=== PATIENT | male | born 1945 | race Caucasian/White ===

== ENCOUNTER → 2017-06-19 | Outpatient (CLI) | payer MEDICARE ==
[~2017-06-19] MED LIST: ALPR.5; FLUO20; LANS30EC; MINO100; OXYACE5T PO
[2017-06-19 16:59] LABS: BASOPHILS ABSOLUTE AUTO 0.04 K/mm3 (0.00-0.23); BASOPHILS PERCENT AUTO 1 % (0-2); EOSINOPHILS PERCENT AUTO 2 % (0-6); Hematocrit 45.9 % (37.0-53.0); Hemoglobin 15.1 g/dL (13.5-17.5); IMMATURE GRAN ABSOLUTE AUTO 0.01 K/mm3 (0.00-0.10); IMMATURE GRAN PERCENT AUTO 0 % (0-1); LYMPHOCYTES PERCENT AUTO 22 % (21-46); MONOCYTES ABSOLUTE AUTO 0.48 K/mm3 (0.16-1.47); MONOCYTES PERCENT AUTO 8 % (4-13); Mean Corpuscular HGB Conc 32.9 g/dL (31.5-36.5); Mean Corpuscular Volume 85 fL (80-100); Mean Platelet Volume 9.6 fL (9.1-12.4); NEUTROPHILS ABSOLUTE AUTO 4.39 K/mm3 (1.96-9.15); NEUTROPHILS PERCENT AUTO 68 % (41-73); Platelet Count 230 K/mm3 (150-400); RDW Standard Deviation 39.8 fL (35.1-46.3); Red Blood Cell Count 5.39 M/mm3 (4.30-5.90); White Blood Cell Count 6.42 K/mm3 (4.00-11.30)
[2017-06-19 17:12] LABS: Albumin, Blood 3.9 g/dL (3.4-5.0); Bilirubin, Total 0.7 mg/dL (0.1-1.0); Bun/Creatinine Ratio 11.4 (12.0-20.0); Calcium, Blood 9.9 mg/dL (8.5-10.1); Creatinine, Blood 1.4 mg/dL (0.60-1.20); Globulin, Blood 3.8 g/dL (2.2-4.0); Potassium, Blood 4.3 mmol/L (3.5-5.5); Total Protein, Blood 7.7 g/dL (6.4-8.2)
== END ==
LOC: LAB EV 16:56
PROVIDERS: Physician Assistant
DX: F10.10 Alcohol abuse, uncomplicated (principal)
CPT/HCPCS: 80053; 83690; 85025

== ENCOUNTER → 2019-10-08 | Outpatient (CLI) | payer MEDICARE | END | disposition home or self-care (01) | LOC: PLD 12:06 → LAB SHORT 12:06 | DX: C44.319 Basal cell carcinoma of skin of other parts of face (principal) | CPT/HCPCS: 88305 ==

== ENCOUNTER 2021-02-01 20:42 | Emergency (ER) | payer MEDICARE ==
[~2021-02-01] VITALS: Ht 185.4 cm; Wt 86.2 kg
[2021-02-01] MEDS ORDERED: PANT40 PO (20:54)
[2021-02-01] MEDS ORDERED: ALFUZOSIN HCL10 MG PO (20:54)
== END 2021-02-01 22:05 | disposition home or self-care (01) ==
LOC: ER 20:42
DX: I95.1 Orthostatic hypotension (principal); E78.5 Hyperlipidemia, unspecified; K21.9 Gastro-esophageal reflux disease without esophagitis; Z79.899 Other long term (current) drug therapy
CPT/HCPCS: 93005; 93010; 99284-25

== ENCOUNTER → 2022-12-19 | Outpatient (CLI) | payer MEDICARE ==
[~2022-12-19] MED LIST changes: +ALFUZOSIN HCL10 MG PO; +AMLO10 PO; +AMOCLA875 PO; +AZIT250 PO; +Acetaminophen325 M1 PO; +B-1100 M1 PO; +CYCL10 PO; +DOCU100 PO; +FOLI1 PO; +LIDO700A20 TOP; +ONDA4 PO; +PANT40 PO
[2022-12-19 10:39] LABS: Source, Urine Voided
[2022-12-19 10:53] LABS: Ketones, Urine Neg (Neg); Leukocyte Esterase, Urine Neg (Neg); Nitrite, Urine Neg (Neg); Protein, Urine Neg (Neg)
[2022-12-19 10:54] LABS: Bilirubin, Urine 1+ (Neg); Blood, Urine Neg (Neg); Glucose Qualitative, Urine NORM (Normal); Urobilinogen, Urine NORM (Normal)
[2022-12-19 10:55] LABS: Appearance, Urine Clear (Clear); Color, Urine Yellow (P-Yellow)
== END | disposition home or self-care (01) ==
LOC: LAB SHORT 09:20 → LAB 09:20
PROVIDERS: Physician Assistant
DX: N39.0 Urinary tract infection, site not specified (principal)
CPT/HCPCS: 81003

== ENCOUNTER → 2023-05-02 | Outpatient (CLI) | payer MEDICARE ==
[2023-05-03 10:55] LABS: Source, Urine Voided
[2023-05-03 10:56] LABS: Appearance, Urine Clear (Clear); Bilirubin, Urine Neg (Neg); Color, Urine Yellow (P-Yellow); Glucose Qualitative, Urine Neg (Normal); Ketones, Urine Neg (Neg); Leukocyte Esterase, Urine Neg (Neg); Nitrite, Urine Neg (Neg); Protein, Urine Neg (Neg); Specific Gravity, Urine 1.005 (1.003-1.022); Urobilinogen, Urine NORM (Normal)
[2023-05-03 10:57] LABS: Blood, Urine Neg (Neg)
== END ==
LOC: LAB 20:17 → LAB SHORT 20:17
PROVIDERS: Physician Assistant
DX: R17 Unspecified jaundice (principal)
CPT/HCPCS: 81003

== ENCOUNTER 2023-09-20 01:51 | Emergency (ER) | payer MEDICARE ==
[~2023-09-20] VITALS: Ht 182.9 cm; Wt 83.9 kg
[2023-09-20] MEDS ORDERED: Diphth,Pertuss(Acell),Tet Vac 0.5 ML VIAL IM ONE (02:45)
[2023-09-20] MEDS ORDERED: Bacitracin Zinc Oint 1GRAM UD Packet TOP ONE (02:45)
[2023-09-20] MEDS ORDERED: Ibuprofen 600 MG Tab PO ONE (02:45)
[2023-09-20 02:46] VITALS: BP 102/76
[2023-09-20] MEDS ORDERED: Ibuprofen600 MG PO (04:51)
== END 2023-09-20 05:22 | disposition home or self-care (01) ==
LOC: ER 01:51
DX: S42.201A Unspecified fracture of upper end of right humerus, initial encounter for closed fracture (principal); S00.81XA Abrasion of other part of head, initial encounter; Z23 Encounter for immunization; K21.9 Gastro-esophageal reflux disease without esophagitis; E78.5 Hyperlipidemia, unspecified; W18.30XA Fall on same level, unspecified, initial encounter; Z87.891 Personal history of nicotine dependence; Z79.899 Other long term (current) drug therapy; Z88.5 Allergy status to narcotic agent
CPT/HCPCS: 70450; 72125; 73060; 90471; 90715; 99284-25; A9270

== ENCOUNTER 2023-09-25 05:29 | Emergency (ER) | payer MEDICARE ==
[~2023-09-25] VITALS: Ht 182.9 cm; Wt 83.9 kg
[~2023-09-25 05:29] MED LIST changes: +Ibuprofen600 MG PO
[2023-09-25 06:48] VITALS: BP 125/85
== END 2023-09-25 06:43 | disposition home or self-care (01) ==
LOC: ER 05:29
DX: S42.211D Unspecified displaced fracture of surgical neck of right humerus, subsequent encounter for fracture with routine healing (principal); Z46.89 Encounter for fitting and adjustment of other specified devices; Z87.891 Personal history of nicotine dependence; K21.9 Gastro-esophageal reflux disease without esophagitis; E78.5 Hyperlipidemia, unspecified; Z79.899 Other long term (current) drug therapy; Z88.5 Allergy status to narcotic agent
CPT/HCPCS: 29105; 73030; 99283-25

== ENCOUNTER 2024-07-24 11:44 | Emergency (ER) | payer OTHER, MEDICARE ==
[~2024-07-24] VITALS: Ht 182.9 cm; Wt 83.9 kg
[2024-07-24 11:46] VITALS: BP 173/91
[2024-07-24] MEDS ORDERED: Lidocaine/Tetracaine/Epinephr 3 ML GEL SYRINGE TOP ONE (13:00)
[2024-07-24] MEDS ORDERED: Diphth,Pertuss(Acell),Tet Vac 0.5 ML VIAL IM ONE (13:05)
== END 2024-07-24 13:34 | disposition home or self-care (01) ==
LOC: ER 11:44
DX: S00.81XA Abrasion of other part of head, initial encounter (principal); E78.5 Hyperlipidemia, unspecified; K21.9 Gastro-esophageal reflux disease without esophagitis; Z87.891 Personal history of nicotine dependence; Z88.6 Allergy status to analgesic agent; Z88.5 Allergy status to narcotic agent; Z59.89 Other problems related to housing and economic circumstances; W01.0XXA Fall on same level from slipping, tripping and stumbling without subsequent striking against object, initial encounter
CPT/HCPCS: 70450; 72125; 90471; 90715; 99284-25

== ENCOUNTER 2024-10-25 08:15 | Emergency (ER) | payer MEDICARE ==
[~2024-10-25] VITALS: Ht 182.9 cm; Wt 83.5 kg
[2024-10-25 11:25] VITALS: BP 147/89
== END 2024-10-25 11:27 | disposition home or self-care (01) ==
LOC: ER 08:15
DX: S20.211A Contusion of right front wall of thorax, initial encounter (principal); S09.90XA Unspecified injury of head, initial encounter; E78.5 Hyperlipidemia, unspecified; K21.9 Gastro-esophageal reflux disease without esophagitis; Z87.891 Personal history of nicotine dependence; W18.30XA Fall on same level, unspecified, initial encounter
CPT/HCPCS: 70450; 71046; 99284-25

== ENCOUNTER 2025-03-13 08:18 | Emergency (ER) | payer MEDICARE ==
[~2025-03-13] VITALS: Ht 182.9 cm; Wt 81.7 kg
[2025-03-13 10:10] LABS: BASOPHILS ABSOLUTE AUTO 0.02 K/mm3 (0.00-0.23); BASOPHILS PERCENT AUTO 0 % (0-2); EOSINOPHILS ABSOLUTE AUTO 0.08 K/mm3 (0.00-0.68); EOSINOPHILS PERCENT AUTO 1 % (0-6); Hematocrit 40.3 % (37.0-53.0); Hemoglobin 13.3 g/dL (13.5-17.5); IMMATURE GRAN ABSOLUTE AUTO 0.02 K/mm3 (0.00-0.10); IMMATURE GRAN PERCENT AUTO 0 % (0-1); LYMPHOCYTES ABSOLUTE AUTO 1.43 K/mm3 (0.84-5.20); LYMPHOCYTES PERCENT AUTO 18 % (21-46); MONOCYTES ABSOLUTE AUTO 0.49 K/mm3 (0.16-1.47); MONOCYTES PERCENT AUTO 6 % (4-13); Mean Corpuscular HGB Conc 33.0 g/dL (31.5-36.5); Mean Corpuscular Volume 87 fL (80-100); NEUTROPHILS ABSOLUTE AUTO 5.84 K/mm3 (1.96-9.15); NEUTROPHILS PERCENT AUTO 74 % (41-73); NRBC ABSOLUTE 0.00 K/mm3 (0.00-0.02); NRBC Auto 0.0 /100 WBC (0.0-0.2); Platelet Count 173 K/mm3 (150-400); RDW Coefficient Variation 12.9 % (11.7-14.2); RDW Standard Deviation 40.5 fL (35.1-46.3)
[2025-03-13] MEDS ORDERED: NS 1,000 ML IV SCH (10:30)
[2025-03-13 10:40] LABS: Alanine Aminotransfer (ALT/SGP 27.0 U/L (12-78); Albumin, Blood 3.3 g/dL (3.4-5.0); Albumin/Globulin Ratio 1.0 (0.8-1.8); Anion Gap 9.0 mmol/L (3-11); Aspartate Aminotrans (AST/SGOT 30.0 U/L (12-37); Bilirubin, Total 0.6 mg/dL (0.1-1.0); Blood Urea Nitrogen 21.0 mg/dL (8-24); CO2, Blood 23.0 mmol/L (21-32); Calcium, Blood 9.2 mg/dL (8.5-10.1); Chloride, Blood 109.0 mmol/L (98-108); Creatinine, Blood 1.45 mg/dL (0.60-1.20); Globulin, Blood 3.2 g/dL (2.2-4.0); Glucose, Blood 115.0 mg/dL (70-99); Potassium, Blood 3.9 mmol/L (3.5-5.5); Sodium, Blood 137.0 mmol/L (136-145); Total Protein, Blood 6.5 g/dL (6.4-8.2)
[2025-03-13 11:28] VITALS: BP 164/85
== END 2025-03-13 13:22 | disposition left against medical advice (07) ==
LOC: ER 08:18
PROVIDERS: Family Medicine
DX: M25.552 Pain in left hip (principal); W18.30XA Fall on same level, unspecified, initial encounter; Z87.891 Personal history of nicotine dependence
CPT/HCPCS: 70450; 73502; 80053; 85025; 93005; 93010; 99284-25; A9270; J7030

== ENCOUNTER 2025-03-30 11:10 | Inpatient (IN) | payer MEDICARE ==
[~2025-03-30] VITALS: Ht 182.9 cm; Wt 80.4 kg
[2025-03-30] MEDS ORDERED: Dexamethasone Sod Phos 10 MG/ML 1ML VIAL IV ONE (11:25)
[2025-03-30] MEDS ORDERED: Ketamine HCL 10 MG in NS 100 ML IV ONE (11:25)
[2025-03-30] MEDS ORDERED: Ondansetron 4 MG SoluTab MM ONE (13:40)
[2025-03-30] MEDS ORDERED: Ondansetron HCl 2 MG / ML 2ML Vial IV ONE (15:15)
[2025-03-30] MEDS ORDERED: HYDROmorphone HCl/Pf 1MG SYR IV ONE ×2 (15:15→16:10)
[2025-03-30 16:16] LABS: BASOPHILS ABSOLUTE AUTO 0.01 K/mm3 (0.00-0.23); BASOPHILS PERCENT AUTO 0 % (0-2); EOSINOPHILS ABSOLUTE AUTO 0.00 K/mm3 (0.00-0.68); EOSINOPHILS PERCENT AUTO 0 % (0-6); Hematocrit 40.9 % (37.0-53.0); Hemoglobin 13.5 g/dL (13.5-17.5); IMMATURE GRAN ABSOLUTE AUTO 0.03 K/mm3 (0.00-0.10); IMMATURE GRAN PERCENT AUTO 0 % (0-1); LYMPHOCYTES ABSOLUTE AUTO 0.27 K/mm3 (0.84-5.20); LYMPHOCYTES PERCENT AUTO 2 % (21-46); MONOCYTES ABSOLUTE AUTO 0.11 K/mm3 (0.16-1.47); MONOCYTES PERCENT AUTO 1 % (4-13); Mean Corpuscular HGB Conc 33.0 g/dL (31.5-36.5); Mean Corpuscular Volume 85 fL (80-100); NEUTROPHILS ABSOLUTE AUTO 11.44 K/mm3 (1.96-9.15); NEUTROPHILS PERCENT AUTO 96 % (41-73); NRBC ABSOLUTE 0.00 K/mm3 (0.00-0.02); NRBC Auto 0.0 /100 WBC (0.0-0.2); Platelet Count 286 K/mm3 (150-400); RDW Coefficient Variation 12.3 % (11.7-14.2); RDW Standard Deviation 38.3 fL (35.1-46.3)
[2025-03-30 16:32] LABS: Alanine Aminotransfer (ALT/SGP 26.0 U/L (12-78); Albumin, Blood 3.5 g/dL (3.4-5.0); Albumin/Globulin Ratio 0.9 (0.8-1.8); Anion Gap 11.0 mmol/L (3-11); Aspartate Aminotrans (AST/SGOT 26.0 U/L (12-37); Bilirubin, Total 0.9 mg/dL (0.1-1.0); Blood Urea Nitrogen 27.0 mg/dL (8-24); CO2, Blood 22.0 mmol/L (21-32); Calcium, Blood 9.7 mg/dL (8.5-10.1); Chloride, Blood 106.0 mmol/L (98-108); Creatinine, Blood 1.33 mg/dL (0.60-1.20); Globulin, Blood 4.0 g/dL (2.2-4.0); Glucose, Blood 145.0 mg/dL (70-99); Potassium, Blood 3.8 mmol/L (3.5-5.5); Sodium, Blood 135.0 mmol/L (136-145); Total Protein, Blood 7.5 g/dL (6.4-8.2)
[2025-03-30] MEDS ORDERED: HYDROmorphone HCl/Pf 1MG SYR IV PRN (17:05)
[2025-03-30] MEDS ORDERED: FLU VACC TS2025(65UP)/MF59C/PF 45 MCG/0.5 ML SYRINGE IM SCH (17:05)
[2025-03-30] MEDS ORDERED: Docusate Sodium/Senna 1 Tab PO PRN (17:10)
[2025-03-30 21:10] VITALS: BP 192/119
[2025-03-30 21:21] VITALS: BP 198/112
--- NOTE | 2025-03-30 21:30 | NUR ---
ARRIVAL TO SURGICAL FLOOR ROOM 212 AT 2109. PT ARRIVED VIA GURNEY AND TRANSFERED TO HOSPITAL BED VIA SLIDER SHEET. PT A/O X4, ORIENTED TO ROOM, CALL LIGHT, AND UNIT POLICIES/PROCEDURES. PT DENIES IGNITION SOURCES. PT HYPERTENSIVE AND TACHYCARDIC. PT DENIES SOB, CHEST PAIN/PRESSURE.
[2025-03-30 21:33] VITALS: BP 166/116
[2025-03-30] MEDS ORDERED: ASPI81CH PO (21:41)
[2025-03-30 22:25] VITALS: BP 185/117
[2025-03-30] MEDS ORDERED: Ondansetron HCl 2 MG / ML 2ML Vial IV PRN (22:30)
--- NOTE | 2025-03-30 22:30 | NUR ---
CALL TO HOSPITALIST. PT REPORTED FEELING NAUSEAOUS AND REQUESTED TO EAT A SNACK HE HAD NOT EATEN "IN 24 HOURS". PT LISTED NPO DIETARY STATUS. PT ALSO HYPERTENSIVE. UPON REVIEW OF MED REQ, PT HAD AMLODIPINE 10MG ON LIST, HOWEVER PT STATES HE DOES NOT TAKE IT. NEW ORDERS RECEIVED FOR ONE TIME AMLODIPINE 10MG, ZOFRAN PRN, AND OK TO EAT PRIOR TO 0000.
[2025-03-30 23:20] VITALS: BP 156/114
[2025-03-30 23:56] VITALS: BP 162/101
[2025-03-31] VITALS (16 sets, daily range): BP systolic 88–160; BP diastolic 67–105
[2025-03-31] MEDS ORDERED: Pantoprazole Sodium 40 MG Injection IV SCH (06:00)
[2025-03-31 06:02] LABS: BASOPHILS ABSOLUTE AUTO 0.01 K/mm3 (0.00-0.23); BASOPHILS PERCENT AUTO 0 % (0-2); EOSINOPHILS ABSOLUTE AUTO 0.01 K/mm3 (0.00-0.68); EOSINOPHILS PERCENT AUTO 0 % (0-6); Hematocrit 42.0 % (37.0-53.0); Hemoglobin 13.6 g/dL (13.5-17.5); IMMATURE GRAN ABSOLUTE AUTO 0.06 K/mm3 (0.00-0.10); IMMATURE GRAN PERCENT AUTO 0 % (0-1); LYMPHOCYTES ABSOLUTE AUTO 1.13 K/mm3 (0.84-5.20); LYMPHOCYTES PERCENT AUTO 8 % (21-46); MONOCYTES ABSOLUTE AUTO 1.21 K/mm3 (0.16-1.47); MONOCYTES PERCENT AUTO 8 % (4-13); Mean Corpuscular HGB Conc 32.4 g/dL (31.5-36.5); Mean Corpuscular Volume 87 fL (80-100); NEUTROPHILS ABSOLUTE AUTO 12.32 K/mm3 (1.96-9.15); NEUTROPHILS PERCENT AUTO 84 % (41-73); NRBC ABSOLUTE 0.00 K/mm3 (0.00-0.02); NRBC Auto 0.0 /100 WBC (0.0-0.2); Platelet Count 314 K/mm3 (150-400); RDW Coefficient Variation 12.5 % (11.7-14.2); RDW Standard Deviation 40.2 fL (35.1-46.3)
[2025-03-31 06:29] LABS: Alanine Aminotransfer (ALT/SGP 27.0 U/L (12-78); Albumin, Blood 3.6 g/dL (3.4-5.0); Albumin/Globulin Ratio 1.0 (0.8-1.8); Anion Gap 10.0 mmol/L (3-11); Aspartate Aminotrans (AST/SGOT 22.0 U/L (12-37); Bilirubin, Total 0.9 mg/dL (0.1-1.0); Blood Urea Nitrogen 30.0 mg/dL (8-24); CO2, Blood 27.0 mmol/L (21-32); Calcium, Blood 9.9 mg/dL (8.5-10.1); Chloride, Blood 103.0 mmol/L (98-108); Creatinine, Blood 1.37 mg/dL (0.60-1.20); Globulin, Blood 3.7 g/dL (2.2-4.0); Glucose, Blood 146.0 mg/dL (70-99); Magnesium, Blood 2.3 mg/dL (1.6-2.4); Potassium, Blood 4.7 mmol/L (3.5-5.5); Sodium, Blood 135.0 mmol/L (136-145); Total Protein, Blood 7.3 g/dL (6.4-8.2)
--- NOTE | 2025-03-31 06:46 | NUR ---
SHIFT SUMMARY NOC. PT ADMIT FOR LEFT HIP FX. PT ON BEDREST ORDERS R/T FX. PT NPO SINCE 0000 ASIDE FROM SMALL SIP OF WATER FOR PAIN MEDS X2. PT VERBALIZED WANTING TO AVOID NARCOTIC PAIN MEDICATIONS MUCH POSSIBLE. MEDICAL POA IS SON TOM JONES WHO [place] PER PT. PT VOIDING URINE VIA [place] AND HAD A BM THIS SHIFT. PT NEEDING ZOFRAN FOR NAUSEA, NO VOMIT EPISODE BUT HAD DRY HEAVES. PT MAKES NEEDS KNOWN, CALL LIGHT IN REACH.
[2025-03-31] MEDS ORDERED: Ropivacaine 0.5% HCl/Pf 123.125 MG,EPINEPHrine HCL 0.25 MG,Ketorolac Tromethamine 15 MG... INFIL SCH (06:55)
[2025-03-31] MEDS ORDERED: CeFAZolin Sodium 2,000 MG in NS 100 ML IV SCH (06:55)
[2025-03-31] MEDS ORDERED: Tranexamic Acid 100 ML IV SCH (07:00)
--- NOTE | 2025-03-31 08:08 | NUR ---
DR THIBODEAUX IN TO SEE PT.
[2025-03-31] MEDS ORDERED: Enoxaparin 40 MG/0.4 ML SYR SC SCH (09:00)
--- NOTE | 2025-03-31 13:33 | NUR ---
pt going to pre op
--- NOTE | 2025-03-31 13:48 | NUR ---
History, Chart, Medications and Allergies reviewed before start of procedure.Lungs clear T/O to Auscultation. Pre-Op teaching done. Pt verbalizes understanding.
--- NOTE | 2025-03-31 14:00 | NUR ---
LEFT HIP TOO PAINFUL TO WIPE WITH BRENDAN WIPE. PT STATES NURSED WIPED IT THIS MORNING
[2025-03-31] MEDS ORDERED: EZET10 PO (14:15)
[2025-03-31] MEDS ORDERED: Midazolam HCl 1MG / ML 2ML Vial ONE (14:59)
[2025-03-31] MEDS ORDERED: HYDROmorphone HCl/Pf 1MG SYR ONE ×2 (14:59→15:25)
--- NOTE | 2025-03-31 15:00 | NUR ---
PT CALLED RN FOR ASSISTANCE. PT REPORTS 9/10 LEFT HIP AND LOW BACK PAIN.PT APPEARS AGITATED-PT TREMORS MORE PROMINENT AND PT MOANING. DR. GAMBLE UPDATED. PT PLACED ON O2 @ 3 LITERS NASAL CANULA-CONTINUOUS O2 MONITOR AND BP EVERY 3 MINUTES. SBP 170-200'S/110'S. DR. GAMBLE MEDICATING FOR PAIN-SEE ANESTHESIA RECORD.
[2025-03-31] MEDS ORDERED: ePHEDrine Sulfate 50 MG/ML 1ML Injection ONE (17:06)
[2025-03-31] MEDS ORDERED: Sugammadex Sodium 200 MG/2ML SDV (100 MG/ML) ONE (17:08)
[2025-03-31] MEDS ORDERED: HYDROmorphone HCl/Pf 1MG SYR IV PRN (17:45)
[2025-03-31] MEDS ORDERED: Prochlorperazine Edisylate 10 mg Vial IV PRN (17:45)
[2025-03-31] MEDS ORDERED: Ondansetron HCl 2 MG / ML 2ML Vial IV PRN (17:45)
[2025-03-31] MEDS ORDERED: FLU VACC TS2025-26(6MOS UP)/PF 45 MCG/0.5 ML SYRINGE IM ONE (17:50)
[2025-03-31] MEDS ORDERED: Metoclopramide HCl 5MG / ML 2ML Vial IV PRN (17:50)
[2025-03-31] MEDS ORDERED: Magnesium Hydroxide Conc 10 ML UDC PO PRN (18:15)
--- NOTE | 2025-03-31 19:00 | NUR ---
UPDATE PT CONFUSED UPON ASSUMING CARE; PT OUT OF PACU WITHIN LAST 15MINS PER DAY RN. IS A/OX4 AT BASELINE, CURRENTLY A/OX0. HAS HX OF CONFUSION WITH NARCOTICS AND ANESTHESIA. PT ATTEMPTING TO CLIMB OUT OF BED, REQUIRES 1;1 AT THIS TIME FOR SAFETY. BED AND TAB ALARM ON FOR SAFETY. DRESSING TO LEFT HIP CDI, REF ICE AT THIS TIME. ON 3L NC; CONT BIOX IN PLACE WITH SPO2 AT 95%. TELE LEADS REPLACED AFTER PT REMOVED, ST IN 90'S PER TOLL TEST DESK WORKER. IVF PATENT AND INFUSING PER ORDERS. CHARGE AWARE.
--- NOTE | 2025-03-31 19:08 | NUR ---
summary pt arrived to unit from pacu. confused and trying to climb out of bed, attempted to reorient pt to situation. pt pleasant but believed he was in [place]. reiterated several times to stay in bed as pt just had surgery, placed bed alarm on. dressing to l hip cdi. vss. report given to oncoming nurse.
[2025-04-01] MEDS ORDERED: CeFAZolin Sodium 2,000 MG in NS 100 ML IV SCH
[2025-04-01] MEDS ORDERED: Ketorolac Tromethamine 15mg Vial IV SCH
[2025-04-01 00:10] VITALS: BP 132/90
--- NOTE | 2025-04-01 00:12 | NUR ---
UPDATE PT A/OX3, ABLE TO CALL SEVERAL FAMILY/FRIENDS ON PHONE. ABLE TO FOLLOW DIRECTIONS. DRESSING TO LEFT HIP CDI. 1:1 AND BED ALARM ON FOR SAFETY. ICE THERAPY TO LEFT HIP APPLIED AND MEDICATED PER EMAR FOR PAIN. CONT BIOX, SCDS, AND TELE IN PLACE PER ORDERS. HAS CALL LIGHT IN REACH AND ABLE TO MAKE NEEDS KNOWN.
[2025-04-01] MEDS ORDERED: NS 250 ML IV PRN (00:20)
[2025-04-01 04:57] VITALS: BP 135/83
--- NOTE | 2025-04-01 06:06 | NUR ---
SHIFT SUMMARY POD 1 S/P LEFT FARIBA HIP. DRESSING TO HIP CDI, CRYOTHERAPY APPLIED TOLERATED. IS NOW A/OX4, REPORTS STILL FEELING "A LITTLE OFF" BUT IS NO LONGER CONFUSED. BELIEVES HE IS GETTING A HEADCOLD AND THATS PROBABLY WHY HE IS "FEELING OFF STILL." ON 1.5L NC, CONT BIOX AND TELE IN PLACE WITH HR NSR IN 80'S BPM AND SP02 AT 94%. IVF/ABX INFUSED PER ORDERS. MEDICATED X1 WITH TYLENOL FOR PAIN. PT IS VOIDING IND IN URINAL. ALEJANDRO PO, DENIES N/V. PLAN TO WORK WITH THERAPY TODAY. PT CURRENTLY RESTING IN BED WITH CALL LIGHT IN REACH. WILL GIVE REPORT TO ONCOMING RN.
[2025-04-01 06:11] LABS: BASOPHILS ABSOLUTE AUTO 0.01 K/mm3 (0.00-0.23); BASOPHILS PERCENT AUTO 0 % (0-2); EOSINOPHILS ABSOLUTE AUTO 0.00 K/mm3 (0.00-0.68); EOSINOPHILS PERCENT AUTO 0 % (0-6); Hematocrit 35.3 % (37.0-53.0); Hemoglobin 11.4 g/dL (13.5-17.5); IMMATURE GRAN ABSOLUTE AUTO 0.04 K/mm3 (0.00-0.10); IMMATURE GRAN PERCENT AUTO 0 % (0-1); LYMPHOCYTES ABSOLUTE AUTO 0.84 K/mm3 (0.84-5.20); LYMPHOCYTES PERCENT AUTO 7 % (21-46); MONOCYTES ABSOLUTE AUTO 0.82 K/mm3 (0.16-1.47); MONOCYTES PERCENT AUTO 7 % (4-13); Mean Corpuscular HGB Conc 32.3 g/dL (31.5-36.5); Mean Corpuscular Volume 89 fL (80-100); NEUTROPHILS ABSOLUTE AUTO 10.17 K/mm3 (1.96-9.15); NEUTROPHILS PERCENT AUTO 86 % (41-73); NRBC ABSOLUTE 0.00 K/mm3 (0.00-0.02); NRBC Auto 0.0 /100 WBC (0.0-0.2); Platelet Count 246 K/mm3 (150-400); RDW Coefficient Variation 12.7 % (11.7-14.2); RDW Standard Deviation 41.2 fL (35.1-46.3)
[2025-04-01 06:37] LABS: Anion Gap 10.0 mmol/L (3-11); Blood Urea Nitrogen 30.0 mg/dL (8-24); CO2, Blood 26.0 mmol/L (21-32); Calcium, Blood 9.3 mg/dL (8.5-10.1); Chloride, Blood 105.0 mmol/L (98-108); Creatinine, Blood 1.3 mg/dL (0.60-1.20); Glucose, Blood 139.0 mg/dL (70-99); Magnesium, Blood 2.1 mg/dL (1.6-2.4); Potassium, Blood 4.5 mmol/L (3.5-5.5); Sodium, Blood 136.0 mmol/L (136-145)
[2025-04-01 07:14] VITALS: BP 135/83
[2025-04-01] MEDS ORDERED: Trimethoprim/Sulfamethoxazole DS Tab PO SCH (09:00)
--- NOTE | 2025-04-01 09:22 | NUR ---
CLARIFIED W/DR BURDEN TO ADMINISTER BOTH ASPIRIN AND LOVENOX ORDERED.
[2025-04-01 14:04] VITALS: BP 127/83
--- NOTE | 2025-04-01 16:48 | NUR ---
SUMMARY NO ACUTE CHANGES T/O SHIFT. PT WORKED WITH THERAPY THIS MORNING AND SAT UP IN CHAIR FOR COUPLE HOURS. HAS BEEN RESTING IN BED, SLEEPING OFF AND ON T/O AFTERNOON. REPORTS PAIN TOLERABLE. CALL LIGHT IN REACH.
[2025-04-01 19:29] VITALS: BP 161/86
[2025-04-02 00:46] VITALS: BP 132/66
--- NOTE | 2025-04-02 04:56 | NUR ---
ADOBE FLEX DEVELOPER SUMMARY NO ACUTE CHANGES THIS SHIFT. PT POD 1 FOR L FARIBA HIP. DRESSING C/D/I. MEDICATED FOR PAIN AT BEDTIME WITH OXY 2.5 MG. PT ABLE TO SLEEP FAIRLY WELL THROUGH THE NIGHT. PT'S CONFUSION FROM PRIOR DAY SEEMS COMPLETELY RESOLVED AND PT HAS BEEN AAOX4. VSS, [place].
[2025-04-02 05:01] VITALS: BP 136/68
[2025-04-02 05:38] LABS: BASOPHILS ABSOLUTE AUTO 0.03 K/mm3 (0.00-0.23); BASOPHILS PERCENT AUTO 0 % (0-2); EOSINOPHILS ABSOLUTE AUTO 0.04 K/mm3 (0.00-0.68); EOSINOPHILS PERCENT AUTO 1 % (0-6); Hematocrit 34.8 % (37.0-53.0); Hemoglobin 11.4 g/dL (13.5-17.5); IMMATURE GRAN ABSOLUTE AUTO 0.01 K/mm3 (0.00-0.10); IMMATURE GRAN PERCENT AUTO 0 % (0-1); LYMPHOCYTES ABSOLUTE AUTO 1.75 K/mm3 (0.84-5.20); LYMPHOCYTES PERCENT AUTO 22 % (21-46); MONOCYTES ABSOLUTE AUTO 0.66 K/mm3 (0.16-1.47); MONOCYTES PERCENT AUTO 8 % (4-13); Mean Corpuscular HGB Conc 32.8 g/dL (31.5-36.5); Mean Corpuscular Volume 87 fL (80-100); NEUTROPHILS ABSOLUTE AUTO 5.39 K/mm3 (1.96-9.15); NEUTROPHILS PERCENT AUTO 68 % (41-73); NRBC ABSOLUTE 0.00 K/mm3 (0.00-0.02); NRBC Auto 0.0 /100 WBC (0.0-0.2); Platelet Count 229 K/mm3 (150-400); RDW Coefficient Variation 12.5 % (11.7-14.2); RDW Standard Deviation 40.0 fL (35.1-46.3)
[2025-04-02 06:17] LABS: Alanine Aminotransfer (ALT/SGP 19.0 U/L (12-78); Albumin, Blood 2.8 g/dL (3.4-5.0); Albumin/Globulin Ratio 0.8 (0.8-1.8); Anion Gap 5.0 mmol/L (3-11); Aspartate Aminotrans (AST/SGOT 41.0 U/L (12-37); Bilirubin, Total 0.6 mg/dL (0.1-1.0); Blood Urea Nitrogen 22.0 mg/dL (8-24); CO2, Blood 30.0 mmol/L (21-32); Calcium, Blood 9.4 mg/dL (8.5-10.1); Chloride, Blood 107.0 mmol/L (98-108); Creatinine, Blood 1.29 mg/dL (0.60-1.20); Globulin, Blood 3.3 g/dL (2.2-4.0); Glucose, Blood 92.0 mg/dL (70-99); Phosphorus, Blood 2.2 mg/dL (2.5-4.9); Potassium, Blood 4.3 mmol/L (3.5-5.5); Sodium, Blood 138.0 mmol/L (136-145); Total Protein, Blood 6.1 g/dL (6.4-8.2)
[2025-04-02 07:26] VITALS: BP 159/100
[2025-04-02 07:27] VITALS: BP 162/92
[2025-04-02] MEDS ORDERED: Fluorescein Sod 1MG Opth Strips BOTHEYES ONE (12:10)
[2025-04-02] MEDS ORDERED: Proparacaine 0.5% Opth Soln 15 ML BTL BOTHEYES ONE (12:15)
[2025-04-02 14:58] VITALS: BP 157/94
--- NOTE | 2025-04-02 17:36 | NUR ---
SHIFT SUMMARY PT DENIES COMPLAINTS. SEEN BY DR ALEXANDRA, WHO DISCOVERED CORNEAL ABRASIONS TO L EYE WITH PEREZ LAMP EXAM. AWAITING ANTIBIOTICS. WILL CONTINUE TO MONITOR.
[2025-04-02 19:28] VITALS: BP 165/105
[2025-04-02] MEDS ORDERED: Erythromycin 0.5% Opth Oint 3.5 gm BOTHEYES SCH (21:00)
[2025-04-03 00:15] VITALS: BP 177/102
--- NOTE | 2025-04-03 04:35 | NUR ---
SHIFT SUMMARY RICK WAS ALERT AND FULLY ORIENTED ON ASSESSMENT. PAIN WELL MANAGED. DENIES CHEST PAIN, NAUSEA, SOB. CIRCULATION/ SENSATION INTACT. DRESSING C/D/I. VOIDING APPROPRIATELY. EYE OINTMENT ORDERED FOR CORNEA ABRASION. NO ACUTE EVENTS OR NOTED CHANGES TO PT CONDITION.
[2025-04-03 05:16] VITALS: BP 164/101
[2025-04-03 07:03] VITALS: BP 179/97
--- NOTE | 2025-04-03 09:00 | NUR ---
pt laying in bed, seems a bit frustrated, states he didn't sleep well last night, at first denies pain, then asks if im asking about emotional pain or physical, then states pain at 9/10, a/ox4, cooperative with care, follows commands well, lungs are clear t/o, resp even and unlabored, no cough noted, on r/a, hrr, no edema noted, ppp+1, cap refill<3 sec, vs stable, afebrile, piv site is clear and patent, btx4, abd flat soft nontender, voids without diff, skin has left hip incision, dressing c/d/i, maew, adalberto, call light in reach.
[2025-04-03] MEDS ORDERED: Potassium Phos/Sodium Phos 250 MG PACK PO ONE (11:00)
[2025-04-03] MEDS ORDERED: Tobramycin 0.3% Opth Soln 5 ML LEFTEYE SCH (14:00)
--- NOTE | 2025-04-03 14:36 | NUR ---
Pt son here, will be transfering to [facility], pt states pain is ok, doesn't need anything. call light in reach.
--- NOTE | 2025-04-03 16:02 | NUR ---
pt has been picked up via wheelchair transport to [facility], gave report to Nena, piv removed intact, son has a copy of current medications, left with all belongings via wheelchair with transport and son in attendence.
== END 2025-04-03 15:57 | DRG 522 ==
LOC: ER 11:10 → ERHOLD 17:03 → SURS 17:03
PROVIDERS: Emergency Medicine; Orthopaedic Surgery; ADMIT Family Medicine
PROC: 3E03329 Introduction of Other Anti-infective into Peripheral Vein, Percutaneous Approach (ICD-10-PCS; 2025-03-31)
PROC: 0SRS0J9 Replacement of Left Hip Joint, Femoral Surface with Synthetic Substitute, Cemented, Open Approach (ICD-10-PCS; principal; 2025-03-31 14:30)
DX: S72.012A Unspecified intracapsular fracture of left femur, initial encounter for closed fracture (principal); E78.5 Hyperlipidemia, unspecified; K21.9 Gastro-esophageal reflux disease without esophagitis; I10 Essential (primary) hypertension; J06.9 Acute upper respiratory infection, unspecified; E83.39 Other disorders of phosphorus metabolism; R45.1 Restlessness and agitation; Z60.2 Problems related to living alone; Z90.49 Acquired absence of other specified parts of digestive tract; Z98.890 Other specified postprocedural states; Z87.891 Personal history of nicotine dependence; Z91.81 History of falling; Z88.5 Allergy status to narcotic agent; W18.2XXA Fall in (into) shower or empty bathtub, initial encounter; Z79.899 Other long term (current) drug therapy
CPT/HCPCS: 36415; 72100; 72170; 73502; 80048; 80053; 83735; 84100; 85025; 93005; 93010; 94760; 94762; 96374; 96375; 96376; 97110; 97161; 97166; 97530; 97535; 99285-25; A6590; A9270; A9270-GY; C1713; C1776; J0166; J0690; J0735; J1100; J1171; J1650; J1885; J2250; J2405; J2470; J2704; J2795; J3373; J7050; J7120